=== PATIENT | male | born 1935 ===

== ENCOUNTER 2018-12-02 06:25 | Day surgery (SDC) | payer OTHER ==
[~2018-12-02] VITALS: Ht 170.2 cm; Wt 68.0 kg
[~2018-12-02 06:25] MED LIST: AMBIEN5 MG; CLONAZEPAM1 MG; FLOMAX; MACRODANTIN25 MG; UREX PO
[2018-12-03] MEDS ORDERED: METHENAMINE HIPP1 GM PO (08:07)
== END 2018-12-03 08:00 | disposition home or self-care (01) ==
LOC: CIR.AMB 06:25 → O/R 17:53 → SURG 17:53 → CIR.AMB 12-03 08:00 → SURG 12-03 11:15 → O/R 12-03 11:15
DX: N39.46 Mixed incontinence (principal); C61 Malignant neoplasm of prostate; R97.21 Rising PSA following treatment for malignant neoplasm of prostate; N32.81 Overactive bladder
CPT/HCPCS: 53445; C1815